=== PATIENT | female | born 2000 | race Caucasian/White ===

== ENCOUNTER 2025-01-13 18:55 | Emergency (ER) | payer SELFPAY ==
[~2025-01-13] VITALS: Ht 160 cm; Wt 72.6 kg
[2025-01-13 19:33] VITALS: O2SAT 99
[2025-01-13] MEDS ORDERED: DEXAMETHASONE 10 MG/ML VIAL IV ONE (20:45)
[2025-01-13] MEDS ORDERED: KETOROLAC 15MG/ML VIAL IV ONE (20:45)
[2025-01-13] MEDS ORDERED: SUMATRIPTAN SUCCINATE 6MG/0.5ML VIAL SUBCUT ONE (20:45)
[2025-01-13] MEDS ORDERED: DIPHENHYDRAMINE 50MG/ML VIAL IV ONE (20:45)
[2025-01-13] MEDS: DIPHENHYDRAMINE 50MG/ML VIAL IV SCH (22:54)
[2025-01-13] MEDS: SUMATRIPTAN SUCCINATE 6MG/0.5ML VIAL SUBCUT SCH (22:55)
[2025-01-13] MEDS: DEXAMETHASONE 10 MG/ML VIAL IV SCH (22:55)
[2025-01-13] MEDS: SODIUM CHLORIDE 0.9% 1,000 ML IV ONE (22:56)
[2025-01-13] MEDS: PROCHLORPERAZINE 10MG/2ML VIAL IV PRN (23:35)
[2025-01-13] MEDS: KETOROLAC 30MG/ML VIAL IV NR (23:35)
[2025-01-14] MEDS ORDERED: IBUP-1455 MT (00:20)
[2025-01-14 00:34] VITALS: BP 106/65; PULSE 78; RESP 12; TEMP 37.2; O2SAT 98
== END 2025-01-14 00:45 | disposition home or self-care (01) ==
LOC: ER 19:24
DX: R51.9 Headache, unspecified (principal); M54.2 Cervicalgia
CPT/HCPCS: 99284; 96374; 96375; 96361; 96372; J1885; J1100; J1200; J3030; J7030